=== PATIENT | male | born 1995 | race African-American/Black ===

== ENCOUNTER 2024-12-10 12:32 | Emergency (ER) | payer MEDICAID, OTHER ==
[~2024-12-10] VITALS: Ht 175.3 cm; Wt 81.8 kg
[2024-12-10 12:35] VITALS: O2SAT 100
[2024-12-10 13:13] VITALS: BP 136/102; PULSE 91; RESP 18; TEMP 36.7; O2SAT 100
[2024-12-10] MEDS ORDERED: TOPUD PO (14:09)
== END 2024-12-10 14:14 | disposition home or self-care (01) ==
LOC: ER 12:32
DX: M25.474 Effusion, right foot (principal); Z79.899 Other long term (current) drug therapy
CPT/HCPCS: 73600; 99283

== ENCOUNTER 2025-03-16 13:51 | Emergency (ER) | payer MEDICAID ==
[~2025-03-16] VITALS: Ht 175.3 cm; Wt 79.0 kg
[~2025-03-16 13:51] MED LIST: TOPUD PO
[2025-03-16 14:07] VITALS: O2SAT 100
[2025-03-16] MEDS: IBUPROFEN 400MG TABLET PO ONE (16:06)
[2025-03-16] MEDS ORDERED: IBUP-2029 MT (17:04)
[2025-03-16 17:18] VITALS: BP 135/85; PULSE 65; RESP 18; TEMP 36.6; O2SAT 100
== END 2025-03-16 17:19 | disposition home or self-care (01) ==
LOC: ER 13:51
DX: M25.531 Pain in right wrist (principal); M25.511 Pain in right shoulder; Y04.0XXA Assault by unarmed brawl or fight, initial encounter; Y93.89 Activity, other specified; Y92.89 Other specified places as the place of occurrence of the external cause; Y99.8 Other external cause status
CPT/HCPCS: 73030; 73110; 99284